=== PATIENT | male | born 1975 | race African-American/Black ===

== ENCOUNTER 2019-05-18 08:06 | Outpatient (CLI) | payer BC, SELFPAY ==
--- NOTE | 2019-05-25 16:22 | SLEEP_ITS ---
Home sleep test. DATE OF STUDY: 05/18/2019 REASON FOR THIS STUDY: Poor quality sleep, non-refreshing sleep. HISTORY: The patient is a 44-year-old male, 6 feet tall, weighing 185 pounds with a body mass index of 25.1. He has had difficulty with sleep for 6 or 7 years, has not addressed until now because he attributed his problems to using alcohol and marijuana, but stopped using these a year ago and still has poor quality sleep. He rarely awakens at night with heartburn or coughing. He rarely snores and rarely it is loud enough that others complain about it. He rarely has trouble sleeping with the cold. He does not gasp for breath at night and does not have breathing problems at night witnessed by others. He occasionally sweats excessively at night. He does not notice his heart pounding irregularly at night. He frequently falls asleep during the day, but never while driving. He occasionally has loss of muscle tone with strong emotion. He does not feel paralyzed on waking or falling asleep. He rarely has vivid dreamlike scenes upon awakening or falling asleep. He is not afraid to go to sleep. He rarely has nightmares and rarely remembers his dreams. He does not have racing thoughts, feelings of sadness, depression, or anxiety. He occasionally has muscular tension. He rarely notices parts of his body jerking. He does not kick at night and does not have crawly achy feelings in his legs before bed. He does not have leg pain at night. He rarely has morning jaw pain. He occasionally grinds his teeth at night. He rarely is bothered by pain during the day. He has never awakened by pain at night. He occasionally wakes up feeling stiff in the morning with sore achy muscles, but rarely wakes up with pain in the neck or spine. He has problems with fatigue, sexual problems and feels unable to relax. He goes to bed between 9 and 9:30 p.m., falling asleep quickly, waking up 5 or more times at night, staying awake on average 5-10 minutes. During that time, he will eat and have a drink. He wakes up in the morning at 4:30 a.m. He estimates 4-5 hours of sleep at night. He does not take naps. A short nap is not refreshing. He is drowsy in the morning for 2 hours or longer. MEDICAL COMORBIDITIES: Fatigue, erectile dysfunction. MEDICATIONS: Vistaril 50 mg at bedtime. HABITS: He does smoke tobacco. It is very light, occasional cigars. Caffeine, 3 cups per day. No current alcohol. DESCRIPTION OF THE STUDY: On the [place] Sleepiness Scale, the score was 18 elevated. This was conducted as an unattended portable home sleep test using 4 channel monitoring including respiratory effort channel, snoring channel, oxygen desaturation channel, and heart rate channel. The study was scored using CMS guidelines. Duration of the study was 9 hours 45 minutes. The apnea-hypopnea index was 10. The oxygen desaturation index was 8.7. The lowest desaturation was 83%. The baseline saturation was 96%. The patient had 37 apneas. 84% of the apneas or 31 apneas were central and 16% of the apneas or 6 were obstructive. He had 58 hypopneas and 219 snoring events. He had 84 desaturations. He spent 1 minute below 89% saturation. The minimum pulse was 62 and the maximum pulse was 146. IMPRESSION: This study did study provides evidence of mild obstructive sleep apnea syndrome with an AHI of 10. The patient's recording time was 9 hours and 45 minutes and the patient normally has between 4 and 5 hours of sleep at night, so this home sleep test is underestimating the severity of his sleep-disordered breathing. The majority of events were central events. This is a concern, as this type of event is often seen in congestive heart failure in patients with a stroke, although it can be seen in people w
== END 2019-05-18 08:07 | disposition home or self-care (01) ==
LOC: ANHCSM 08:07
PROVIDERS: Visit Provider Emergency Medicine
DX: G47.10 Hypersomnia, unspecified (principal); R53.83 Other fatigue
CPT/HCPCS: 95806

== ENCOUNTER 2019-12-23 16:25 | Outpatient (CLI) | payer BC, SELFPAY ==
--- NOTE | ~2019-12-23 | XR_ITS ---
EXAMINATION: XR lumbar spine 2-3V DATE: 12/23/2019 16:54 INDICATION: Low back pain. TECHNIQUE: 2 views of lumbar spine were obtained. COMPARISON: None. FINDINGS: Bone alignment is normal. Vertebral body heights and intervertebral disc heights are normal . The facet joints are unremarkable. There is spina bifida occulta at L5. IMPRESSION: 1. No etiology for the patient's symptoms. Reviewed, dictated and finalized at location A.
== END 2019-12-23 16:26 | disposition home or self-care (01) ==
PROVIDERS: PCP Emergency Medicine; Visit Provider Emergency Medicine
DX: M54.5 Low back pain (principal)
CPT/HCPCS: 72100; 97140; 97161

== ENCOUNTER 2020-02-16 08:00 | Outpatient (RCR) | payer BC, SELFPAY ==
--- NOTE | 2019-12-23 16:15 | PTOPEVAL ---
PHYSICAL THERAPY EVALUATION AND PLAN OF CARE Thank you for referring Javier Ziegler to [facility] [place].? The patient is scheduled to be seen for therapy? 1x/week for 4-6 weeks. Please review, sign, date and return this plan of care ALFREDO. I agree with and certify that the following plan of care is medically necessary. Referring Physician Date Attending Provider: Jim Mcnally MD Evaluation Outpatient Past Medical History Past Medical History No Past Medical/Surgical History Patient/Family Denies Significant Past Medical/ Surgical History Diagnosis lower back pain Onset 5 months ago Subjective Information Woke up one more and felt pain Query Text:As Reported By Patient/ in the lower back just above Family the buttocks. States that sitting too long causes pain in the back making it difficult to stand up again. He drives with a cushion under his bottom and that helps making driving more comfortable. Sitting on hard surfaces is very difficult. States that standing and moving is fine (without pain), just that sitting for any amount of time increases symptoms significantly and sitting longer increases symptoms even more. 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 Pain Assessment Timing of Pain Assessment Timing of Pain Assessment Assessment Pain Scale Pain Scale Used Numeric (1 - 10) Self Report Pain Assessment Lower Spine, Lumbar Reported Pain Level 4 Pain Description Aching Pain Frequency Chronic,Intermittent Greatest Pain Intensity 7 Pain Aggravating Factors Sitting Pain Score Pain Score 4: Self Report Cervical and Lumbar ROM Lumbar ROM Lumbar Flexion (0-90) 60 Query Text:Active in Degrees Lumbar Extension (0-40) 20 Query Text:Active in Degrees Lateral Rotation Right (0-45) 35 Query Text:Active in Degrees Lateral Rotation Left (0-45) 35 Query Text:Active in Degrees Lumbar Comments right side bend noted in lumbar flexion Lower Extremity Muscle Strength Testing Hip Strength Bilateral Hip Flexion Strength 4+ Good + Hip Abduction Strength 3+ Fair + Hip Strength Comments
--- NOTE | 2020-01-26 09:46 | PTOPEVAL ---
PHYSICAL THERAPY PLAN OF CARE UPDATE AND PROGRESS REPORT Thank you for referring Javier Ziegler to [facility].? The patient is scheduled to be seen for therapy? 1x/week for 3 weeks. Please review, sign, date and return this plan of care ALFREDO. I agree with and certify that the following plan of care is medically necessary. Referring Physician Date Attending Provider: Jim Mcnally MD Progress Diagnosis lower back pain Onset 5 months ago Subjective Information Reports overall feeling much Query Text:As Reported By Patient/ improved. He has not taken Family medication in over a week and his symptoms continue to gradually ease. He tried to move his pillow while driving from under hips to behind back and reports no significant changes witht he change. 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 He is comfortable with HEP and states he is performing regularly. Self Report Pain Assessment Lower Spine, Lumbar Reported Pain Level 1 Pain Description Aching Pain Frequency Chronic,Intermittent Pain Aggravating Factors Sitting Pain Score Pain Score 1: Self Report Interventions Used Interventions Used By Clinicians Exercise,Mobilization,Manual Therapy Techniques Cervical and Lumbar ROM Lumbar ROM Lumbar Flexion (0-90) 70 Query Text:Active in Degrees Lumbar Extension (0-40) 30 Query Text:Active in Degrees Lateral Rotation Right (0-45) 40 Query Text:Active in Degrees Lateral Rotation Left (0-45) 40 Query Text:Active in Degrees Lumbar Comments very mild right side bend with flexion Lower Extremity Muscle Strength Testing Hip Strength Bilateral Hip Flexion Strength 5 Normal Hip Extension Strength 4- Good - Hip Abduction Strength 5 Normal Hip Strength Comments left hip extension: 25deg extension; strength = 4/5 right hip extension: 25deg extension; strength = 4-/5 Muscle Length Testing Piriformis w/Hip Flexion >90 Degrees (R) Moderate Tightness,(L) Moderate Tightness Right Prone Hip Internal Rotator Length 15 (degrees) Left Prone Hip Internal Rotator L
--- NOTE | 2020-02-08 08:56 | PCPTNOTE ---
Patient did not show up for scheduled appointment this date. He was called and informed of his next appointment 02/15 at 8:00AM.
--- NOTE | 2020-02-16 08:48 | PTOPEVAL ---
PHYSICAL THERAPY DISCHARGE NOTE Thank you for referring Javier Ziegler to [facility].? Please review, sign, date and return this plan of care ALFREDO. I agree with and certify that the following plan of care is medically necessary. Referring Physician Date Attending Provider: Jim Mcnally MD Discharge Outpatient Past Medical History Past Medical History No Past Medical/Surgical History Patient/Family Denies Significant Past Medical/ Surgical History Diagnosis lower back pain Onset 5 months ago Subjective Information Reports overall feeling much Query Text:As Reported By Patient/ improved. Continues to Family significantly limit how much he takes the medication. he continues to feel the symptoms , but not as severe as he was. Feels like the symptoms are about the same as a month ago, but better than when we first started therapy. Self Report Pain Assessment Lower Spine, Lumbar Reported Pain Level 0 Pain Description Aching Pain Frequency Chronic,Intermittent Pain Aggravating Factors Sitting Pain Score Pain Score 0: Self Report Additional Pain Score Comments 'haven't really sat much this morning and haven't felt it at all yet' Interventions Used Interventions Used By Clinicians Exercise Lumbar ROM Lumbar Flexion (0-90) 70 Query Text:Active in Degrees Lumbar Extension (0-40) 30 Query Text:Active in Degrees Lateral Rotation Right (0-45) 40 Query Text:Active in Degrees Lateral Rotation Left (0-45) 40 Query Text:Active in Degrees Lower Extremity Muscle Strength Testing Hip Strength Bilateral Hip Flexion Strength 5 Normal Hip Extension Strength 4- Good - Hip Abduction Strength 5 Normal Hip Strength Comments left hip extension: 30deg extension; strength = 4+/5 right hip extension: 30deg extension; strength = 4+/5 Muscle Length Testing Muscle Length Testing Piriformis w/Hip Flexion >90 Degrees (R) Moderate Tightness,(L) Moderate Tightness Right Prone Hip Internal Rotator Length 20 (degrees) Left Prone Hip Internal Rotator Length ( 20 degrees) Right Straight Leg Raise Muscle Length ( 80 degrees) Left Straight Leg Raise Muscle Length ( 70 degrees) Left H
== END 2020-02-16 10:07 | disposition home or self-care (01) ==
LOC: ANHPT 08:00
PROVIDERS: PCP Emergency Medicine; Visit Provider Emergency Medicine
DX: M54.5 Low back pain (principal)
CPT/HCPCS: 97110; 97140; 97161

== ENCOUNTER 2020-06-22 18:07 | Emergency (ER) | payer OTHER, BC, SELFPAY ==
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
[2020-06-22 19:03] VITALS: BP 136/77; PULSE 86; RESP 16; TEMP 36.3; O2SAT 99
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
== END 2020-06-22 20:42 | disposition home or self-care (01) ==
PROVIDERS: Emergency Provider General Practice; PCP Emergency Medicine
DX: S43.402A Unspecified sprain of left shoulder joint, initial encounter (principal); M62.830 Muscle spasm of back; M41.9 Scoliosis, unspecified; V49.40XA Driver injured in collision with unspecified motor vehicles in traffic accident, initial encounter
CPT/HCPCS: 73030; 99283